=== PATIENT | female | born 1950 | race Caucasian/White ===

== ENCOUNTER 2023-10-16 09:16 | Outpatient (CLI) | payer MEDICARE, SELFPAY ==
--- NOTE | 2023-10-16 09:32 | ECG_ITS ---
SEE SCANNED COPY FOR CONFIRMED REPORT MTDD
== END 2023-10-16 09:17 | disposition home or self-care (01) ==
PROVIDERS: PCP Family Medicine; Visit Provider Orthopaedic Surgery
DX: Z01.818 Encounter for other preprocedural examination (principal); I10 Essential (primary) hypertension
CPT/HCPCS: 93005

== ENCOUNTER 2023-10-19 01:17 | Day surgery (SDC) | payer MEDICARE, SELFPAY ==
--- NOTE | 2023-10-14 14:51 | PC.NURSE ---
Report to the Outpatient Waiting Room, entrance under the green pavilion located off [facility], at time _0800 on date __10/19/23 . Planned Procedure Time: _1000 . Time changes happen often and if your time is changed the preop area will call you the afternoon before. - You and your visitor will be asked to self-screen and do not enter if you have any COVID symptoms. - A mask is optional within the hospital at this time. Patients may have clear liquids (water, carbonated beverages, clear teas, apple juice) until 3 hours prior to surgery( 7:00AM) with a maximum of 20 ounces. - No food from midnight until time of surgery - Infants may have breast milk until 4 hours before surgery, infant formula 6 hours prior to surgery. - Children will be allowed to drink immediately following surgery. If applicable, please bring a bottle or sippy cup to assist with drinking. Juice, water, soda, and popsicles are readily available. For infants on formula, please bring formula the day of surgery. Pacifiers are allowed. Take the following medications with a SIP of water the morning of surgery: __AMLODIPINE, DO NOT STOP ANY OF YOUR OTHER PRESCRIPTION MEDICATIONS PRIOR TO SURGERY ?EXCEPT THE FOLLOWING Medications to discontinue per physician ___PT STATES LAST DOSE ASPIRIN 10/13/23 (PER PT) HOLD ALL VITAMINS AND SUPPLEMENTS 3 DAYS PRE OP LAST DOSE 10/15/23 Please no make-up, nail central african, hairspray, perfume, deodorant, or body powder the day of surgery. No jewelry (including any body piercings) or valuables the day of surgery, leave them at home. Please take a shower or bath the night before, or the morning of, surgery with an antibacterial soap. Wear comfortable, loose fitting clothing. Children are encouraged to wear pajamas. - Jewelry must be removed prior to entering the operating room. Rings and piercings that are not removed may be cut off. - The hospital will not accept responsibility for valuables. - Please leave all valuables, including medications, at home the day of surgery. If you are going home after surgery, a licensed spike driver must drive you home. - NO public transportation without another adult if you receive anesthesia. - We recommend that an adult stay with you for 24 hours following discharge. - We also recommend that you do not drive, make important decision, drink alcoholic beverages, or take any drugs that were not prescribed by your health care provider for at least 24 hours after your discharge time. Follow any additional instructions given to you from your surgeon. If you or anyone in your household have experienced Covid symptoms in the past week, please notify your surgeon or the nurse liaison at the phone number below for possible testing. Telephone instructions given to ___PATIENT and asked if any additional questions and then verbalized understanding. Patient advised to call surgeon office or pre surgery nurse liaison [phone] if any additional questions.
[2023-10-14 14:59] VITALS: BMI 30.4
--- NOTE | 2023-10-15 10:27 | PM.IMHP ---
H&P: HPI History of Present Illness Date/Time: 10/15/23 10:27 Chief Complaint: Patient has knee pain left. With catching and locking. She had a fall and she twisted her knee and really and re-injured it at that time. She has failed conservative treatment and would like to consider arthroscopic intervention. Review of Systems Musculoskeletal: Musculoskeletal: Reports arthralgias, Reports joint swelling and Reports stiffness [facility] Past Medical History Medical History H/O gastric ulcer H/O TIA (transient ischemic attack) and stroke 2009 High cholesterol Hypertension Surgical History Surgical History H/O section 1974 H/O shoulder surgery 2008 Hx of cholecystectomy Family History Family History Mother Acute myocardial infarction Sibling Acute myocardial infarction Diabetes mellitus Heart disease Cancer Father Lung cancer Social History Social History Smoking status: Never smoker Alcohol intake: current Drinks per week: 2 Substance use: former Substance use type: marijuana Last use: took gummies but stopped due to upset stomach Do You Feel Safe in your Home?: Yes Lack of Transportation: No Lack of Food: Never True Current Housing: I Have Housing Concerned About Future Housing: No Difficulty Paying Gas/Electric Bills: No Difficulty Paying for Meds: No Currently Unemployed: No Education: High School Diploma/GED Difficulty w/ Childcare or Family Care: No Living arrangements: with family Occupation/Education: retired Additional occupation/education comments: 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 [employer] Gender identity (if verbalized by the patient): Female Spiritual care concerns: No Meds Home Medications and Allergies Home Medications Medication Instructions Recorded Confirmed Type amlodipine 5 mg tablet (Norvasc) 5 mg PO DAILY 09/17/23 10/14/23 History aspirin 81 mg tablet,delayed 81 mg PO DAILY 09/17/23 10/14/23 History release fexofenadine 180 mg tablet 180 mg PO PRN PRN Allergy Symptoms 09/17/23 10/14/23 History (Stefani Allergy) losartan 50 mg tablet (Cozaar) 50 mg PO DAILY 09/17/23 10/14/23 History pantoprazole 20 mg tablet,delayed 20 mg PO QAM 09/17/23 10/14/23 History release pravastatin 40 mg tablet 40 mg PO DAILY 09/17/23 10/14/23 History clobetasol 0.05 % topical ointment 1 applic topical DAILY 09/29/23 10/14/23 History calcium carbonate 600 mg PO DAILY 10/14/23 10/14/23 History magnesium 200 mg tablet 200 mg PO DAILY 10/14/23 10/14/23 History multivitamin (Daily Multi-Vitamin 1 tablet PO DAILY 10/14/23 10/14/23 History tablet) multivitamin with minerals 1 tablet PO DAILY 10/14/23 10/14/23 History (Hair,Skin and Nails tablet) omega-3 fatty acids 1,000 mg PO DAILY 10/14/23 10/14/23 History Allergies Allergy/AdvReac Type Severity Reaction Status Date / Time amoxicillin Allergy Severe Diarrhea Verified 10/14/23 14:36 dextromethorphan Allergy Intermediate INCREASES Verified 10/14/23 14:36 BP erythromycin base Allergy Unknown rash Verified 10/14/23 14:36 Macrolide Antibiotics Allergy Unknown rash Verified 10/14/23 14:36 Sulfa (Sulfonamide Allergy Unknown rash Verified 10/14/23 14:36 Antibiotics) prednisone AdvReac Unknown Rash Verified 10/14/23 14:36 Exam Narrative: On exam she is tender medially has catching locking and pain. She walks with a mild limp. Mechanical symptoms are are present when she twists or turns. Eyes: General: appearance normal, both eyes and all related structures Neck: Neck: supple Resp: Effort & Inspection: normal respiratory effort Cardio: Rate: regular rate Rhythm: regular rhythm Assessment and Plan Assessment and plan (1) Acute medial meniscus tear
[2023-10-19] VITALS (8 sets, daily range): BP systolic 108–150; BP diastolic 61–87; PULSE 55–87; RESP 12–20; TEMP 36.1–36.5; O2SAT 96–100
--- NOTE | 2023-10-19 06:59 | WPDHPUPDATE1 ---
History and Physical Update Update Date/Time: 10/19/23 06:59 History and Physical has been reviewed, including an updated exam of the patient. There are NO changes in the patient's condition. Risks, benefits, and alternatives have been discussed and questions answered. Patient agrees to proceed with procedure.
[2023-10-19] MEDS: ACETAMINOPHEN 500 MG TABLET 1000 MG PO (08:21)
--- NOTE | 2023-10-19 08:34 | WPDANESEPPF ---
Anes - Initial Pre Proc Eval Procedure: Operation Date: 10/19/23 10:00 Proposed Procedures p Left Knee Arthroscopy, Partial Meniscectomy, Proceed As Indicated - Xiang Beckwith MD Date/Time: 10/19/23 08:34 Surgeon: Xiang Beckwith MD Pre Op Diagnosis: left medial meniscal tear Patient Data Age: 73 Gender: F Height: 1.59 m Weight: 76.7 kg Allergies Allergy/AdvReac Type Severity Reaction Status Date / Time amoxicillin Allergy Severe Diarrhea Verified 10/14/23 14:36 dextromethorphan Allergy Intermediate INCREASES Verified 10/14/23 14:36 BP erythromycin base Allergy Unknown rash Verified 10/14/23 14:36 Macrolide Antibiotics Allergy Unknown rash Verified 10/14/23 14:36 Sulfa (Sulfonamide Allergy Unknown rash Verified 10/14/23 14:36 Antibiotics) prednisone AdvReac Unknown Rash Verified 10/14/23 14:36 Home Medications Medication Instructions Recorded Confirmed Type amlodipine 5 mg tablet (Norvasc) 5 mg PO DAILY 09/17/23 10/14/23 History aspirin 81 mg tablet,delayed 81 mg PO DAILY 09/17/23 10/14/23 History release fexofenadine 180 mg tablet 180 mg PO PRN PRN Allergy Symptoms 09/17/23 10/14/23 History (Stefani Allergy) losartan 50 mg tablet (Cozaar) 50 mg PO DAILY 09/17/23 10/14/23 History pantoprazole 20 mg tablet,delayed 20 mg PO QAM 09/17/23 10/14/23 History release pravastatin 40 mg tablet 40 mg PO DAILY 09/17/23 10/14/23 History clobetasol 0.05 % topical ointment 1 applic topical DAILY 09/29/23 10/14/23 History calcium carbonate 600 mg PO DAILY 10/14/23 10/14/23 History magnesium 200 mg tablet 200 mg PO DAILY 10/14/23 10/14/23 History multivitamin (Daily Multi-Vitamin 1 tablet PO DAILY 10/14/23 10/14/23 History tablet) multivitamin with minerals 1 tablet PO DAILY 10/14/23 10/14/23 History (Hair,Skin and Nails tablet) omega-3 fatty acids 1,000 mg PO DAILY 10/14/23 10/14/23 History Patient hx anesthesia problems: none Family hx anesthesia problems: none Results Review: All pre-operative results and documents have been reviewed as part of the pre-operative evaluation. [facility] Past Medical History Medical History H/O gastric ulcer H/O TIA (transient ischemic attack) and stroke 2009 High cholesterol Hypertension Surgical History Surgical History H/O section 1975 H/O shoulder surgery 2009 Hx of cholecystectomy Family History Family History Mother Acute myocardial infarction Sibling Acute myocardial infarction Diabetes mellitus Heart disease Cancer Father Lung cancer Social History Social History Smoking status: Never smoker Alcohol intake: current Drinks per week: 2 Substance use: former Substance use type: marijuana Last use: took gummies but stopped due to upset stomach Do You Feel Safe in your Home?: Yes Lack of Transportation: No Lack of Food: Never True Current Housing: I Have Housing Concerned About Future Housing: No Difficulty Paying Gas/Electric Bills: No Difficulty Paying for Meds: No Currently Unemployed: No Education: High School Diploma/GED Difficulty w/ Childcare or Family Care: No Living arrangements: with family Occupation/Education: retired Additional occupation/education comments: 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 ) Neurological: alert and oriented Last oral intake: >/= 8 hours ASA classification: II Emergent: no
[2023-10-19] MEDS: LACTATED RINGERS 1,000 ML 30 ML IV CONT ×2 (08:39→11:41)
[2023-10-19] MEDS: KETOROLAC 15 MG/ML VIAL (*BKC) IV PUSH (10:18)
[2023-10-19] MEDS: ceFAZolin 2 GM/D5W 50 ML 2 GM/50 ML BAG IVPB (10:52)
[2023-10-19] MEDS: LIDO 1%/EPINEPHRINE 1:100,000 20 ML VIAL INFILTRATE (11:17)
--- NOTE | 2023-10-19 11:26 | W.PM.PROC2 ---
Procedure Note - Detailed Date of Procedure 10/19/23 Pre-op Diagnosis Left medial meniscal tear Post-op Diagnosis Same Procedure Performed LEFT knee arthroscopy with partial meniscetomy Surgeon Xiang Beckwith MD Anesthesia General Indications Pain and Catching Description of Procedure Patient brought to operating room # 8. An anesthetic was administered. The knee was steriley prepped and draped in the usual manner. Standard portals were used. Superior medial portal was used for the outflow cannula, inferior lateral portal was used for the scope, inferior medial portal was used for the instruments. Arthroscopy was performed, the patellar femoral joint showed grade 3-4 degenerative changes. The medial compartment showed a complex tear. The lateral compartment showed fraying. The ACL was intact. Using baskets and samantha the meniscal tear was trimmed back to a stable base so the nothing further could be pulled into the joint. Any loose or delaminated fragments were gently trimmed to a stable base. At this point the instruments were withdrawn, sutures placed and patient left the operating room in satisfactory condition. Estimated Blood Loss 20 Drains No Packing No Pathology None sent Complications No immediate complications Condition Stable Disposition PACU [facility] Billing Surgery - Charge Forward: Surgery Billing ([id number] Medial Meniscal Tear)
[2023-10-19] MEDS: fentaNYL CITRATE INJ (*CRX) 100 MCG/2 ML VIAL 25 MCG IV PUSH ×3 (11:58→12:11)
[2023-10-19] MEDS: oxyCODONE HCL (*CRX) 5 MG TAB IR PO (12:30)
== END 2023-10-19 13:16 | disposition home or self-care (01) ==
PROVIDERS: PCP Family Medicine; Visit Provider Orthopaedic Surgery
PROC: (CPT 29870; principal; 2023-10-19 10:00)
DX: S83.232A Complex tear of medial meniscus, current injury, left knee, initial encounter (principal); I10 Essential (primary) hypertension; E78.00 Pure hypercholesterolemia, unspecified; F12.90 Cannabis use, unspecified, uncomplicated; E66.9 Obesity, unspecified; Z68.30 Body mass index [BMI] 30.0-30.9, adult; Z79.82 Long term (current) use of aspirin; W19.XXXA Unspecified fall, initial encounter; Z98.890 Other specified postprocedural states; Z90.49 Acquired absence of other specified parts of digestive tract; Z86.73 Personal history of transient ischemic attack (TIA), and cerebral infarction without residual deficits; Z80.1 Family history of malignant neoplasm of trachea, bronchus and lung; Z82.49 Family history of ischemic heart disease and other diseases of the circulatory system
CPT/HCPCS: 29881; 93005; A9270; J0690; J1170; J1885; J2405; J2704; J3010; J7120